=== PATIENT | female | born 1980 ===

== ENCOUNTER 2019-11-17 14:11 | Inpatient (IN) | payer OTHER ==
[~2019-11-17] VITALS: Ht 172.7 cm; Wt 88.0 kg
[2019-11-21] MEDS ORDERED: PRENATAL PLUS1 EAC1 PO (06:42)
== END 2019-11-24 11:40 | disposition home or self-care (01) | DRG 785 ==
LOC: SURH 11-20 11:06 → O/R 11-21 06:15 → SURH 11-21 07:00 → OB/GYN 11-21 14:42
PROVIDERS: ADMIT Obstetrics & Gynecology; ATTEND Obstetrics & Gynecology
PROC: 0UB70ZZ Excision of Bilateral Fallopian Tubes, Open Approach (ICD-10-PCS; 2019-11-21)
PROC: 4A1HXFZ Monitoring of Products of Conception, Cardiac Rhythm, External Approach (ICD-10-PCS; 2019-11-21)
PROC: 3E033VJ Introduction of Other Hormone into Peripheral Vein, Percutaneous Approach (ICD-10-PCS; 2019-11-21)
PROC: 10D00Z1 Extraction of Products of Conception, Low, Open Approach (ICD-10-PCS; principal; 2019-11-21 07:00)
DX: O82 Encounter for cesarean delivery without indication (principal); O34.211 Maternal care for low transverse scar from previous cesarean delivery; Z3A.38 38 weeks gestation of pregnancy; Z37.0 Single live birth; Z30.2 Encounter for sterilization

== ENCOUNTER 2021-01-24 09:00 | Outpatient (CLI) | payer OTHER ==
[~2021-01-24 09:00] MED LIST: PRENATAL PLUS1 EAC1 PO
== END 2021-01-24 09:30 | disposition home or self-care (01) ==
LOC: PPH VACUNA 09:00
PROVIDERS: ATTEND Emergency Medicine Pediatric Emergency Medicine
DX: Z23 Encounter for immunization (principal)